=== PATIENT | female | born 1955 | race Caucasian/White ===

== ENCOUNTER 2016-10-05 13:00 | Outpatient (RCR) | payer BC ==
--- NOTE | 2016-09-16 14:28 | PT/OT/ST INITIAL EVALUATION ---
Department of Health and Human Services Form Approved Health Care Financing Administration OMB No. [id number] PLAN OF CARE/ASSESSMENT FOR OUTPATIENT REHABILITATION (Complete for Initial Claims Only) 1. PATIENT'S NAME Arabella Crocker 2. ACC # [id number] 3. HICN NA 4. PROVIDER NO. [id number] 5. TYPE: PT 6. PRIOR HOSPITALIZATION NA 7. PRIMARY DX Right shoulder and neck pain 8. SECONDARY DX NA 9. ONSET DATE Several years ago 10. REFERRAL DATE 09/07/2016 11. SOC. DATE 09/08/2016 12. TIME OF EVAL 11:[address] Herminia Cat 13. CHARGES/UNITS Evaluation 93483 Iontophoresis Manual therapy 66648, 1 unit Therapeutic exercise 79692, 1 unit 14. G CODES NA 15. PRIOR LEVEL OF FUNCTION; PERTINENT HISTORY (Prior therapy results, reason for referral.) S: Prior to today's evaluation the patient did consent to today's evaluation and treatment. The patient is a 61-year-old female who reports an initial onset of neck and right shoulder pain several years ago. The patient has noted a recent increase in shoulder and cervical spine pain that began to worsen in April. She was having to assist her father with transfers, and now is currently having to help with cleaning out her father's home which involves lifting and carrying boxes. Primary Complaint: The patient's primary complaint is her arms going to sleep when they are overhead, as well as shoulder pain that is present with most upper extremity movements. She also has a significant feeling of tightness in the neck and upper thoracic regions. Prior level of function: The patient is recently retired and does enjoy going to the [employer], camping and boating. She also has been working on remodeling. The patient is also very supportive of her father and was having to assist him with transfers within the last 6 months with a decline in his medical status. Current level of function: The patient reports she is still able to complete all daily tasks, however, is experiencing increased pain. She does note difficulty with reaching back behind her back secondary to pain with her right shoulder. Therapy History: The patient has not had any recent therapy for this issue. Pain rating: Current pain level is 3/10 with pain greater than 3/10 with upper extremity movements. The pain is described as constant with some days being more painful than others. She also has a sharp pain that is present in the right shoulder. Neck stiffness is the primary complaint with muscle tightness. Aggravating factors: The pain is exacerbated by upper endoscopy movements. Relieving factors: It is relieved by massage and using heat. Diagnostic testing: No diagnostic tests have been utilized at this time. Past medical history: Includes celiac disease and arthritis, appendectomy, blepharoplasty and hiatal hernia repair. Current medications: The patient currently takes Omeprazole and Levocetirizine, as well as ibuprofen, and Aleve. Activity level: Reported as low. Personal health rating: Reported as good. Patient's Goal: The patient's goal is to be able to have less pain and loosen the muscles of her upper back and neck. 16. INITIAL ASSESSMENT/SAFETY PRECAUTIONS/MEDICAL COMPLICATIONS (Level of function at start of care. Be specific, use objective measures, list problems.) O: APPEARANCE AND OBSERVATION: The patient has mild forward head positioning. The patient also has mild elevated right 1st rib with palpation. PALPATION: The patient has tightness and tenderness to palpation of the bilateral upper trapezii, greatest on the right, as well as tightness in the parascapular muscles and the right sternocleidomastoid. SPECIAL TESTS: Positive Yergason test on the right for bicipital tendonitis. Negative Neer's impingement and sulcus sign for any instability or impingement bilaterally. Negative Spurling test for recreation of pain in the cervical spine region, as well as negative cervical distraction test for relief of symptoms. MOBILITY: The patient has mild hypomobility throughout the lower cervical spine region. RANGE OF MOTION/FLEXIBILITY: Right cervical rotation 60 degrees and painful. Left 54 degrees and painful. Bilateral cervical side bending limited by 50%. Cervical flexion and extension are not limited. The patient has full shoulder flexion bilaterally, but it is painful on the right shoulder. Internal rotation on the right was T12, on the left T6. External rotation right T4, left T6. STRENGTH: Bilateral shoulder flexion and abduction strength 5/5. Shoulder internal rotation strength 5/5 bilaterally. External rotation strength 4/5. Elbow flexion and extension 5/5. TODAY'S TREATMENT: Today's treatment consisted of educating the patient on the findings of the evaluation and recommended treatment plan. The physical therapist did utilize occipital relief, which the patient did note a loosening of her muscles; however, she did have a feeling of numbness in both of her hands after lying supine for approximately 15 minutes. Upon sitting from supine, the patient did report lightheadedness and a feeling of wooziness that did take greater than 2 minutes to resolve. The patient does report that this is not a new sensation, however, wasn't able to recall what specifically brings it on outside of therapy. The physical therapist did provide a written home exercise program consisting of cervical spine range of motion activities and scapula mobility exercises. 17. INITIAL POC: (Specify procedures, modalities, short and terminal clerk goals) A: The patient presents to physical therapy with a longstanding history of neck and right shoulder pain with a recent exacerbation starting in April 2016. The patient has impaired cervical spine range of motion, significant muscle tightness throughout the cervical spine and parascapular region greatest on the right and mild strength impairments in the right shoulder. PROGNOSIS: The patient does have a good outcome due to her active prior level of function and motivation to have decreased pain and improved mobility. INFORMED CONSENT: The diagnosis, prognosis, treatment plan, risks and expected outcomes were discussed with this patient and is agreeable to today's established plan of care. SHORT TERM GOALS X2 WEEKS: 1. The patient will report a 50% decrease in pain frequency in order to complete daily tasks with less discomfort. 2. The patient will improve left cervical rotation to be a minimum of 60 degrees and cervical side bending to be a minimum of 30 degrees to demonstrate improved functional cervical range of motion. 3. The patient will demonstrate proper scapular stabilization throughout a full treatment with less than 3 verbal cues to improve support for her shoulders. PLASTER TENDER GOALS X4 WEEKS: 1. The patient will demonstrate shoulder internal rotation to be at the T8 level with no pain reported with this movement. 2. The patient will demonstrate the ability to improve bilateral shoulder external rotation strength to be 5/5 with proper scapular stabilization. 3. The patient will report no numbness or tingling in her upper extremities in a 1 week time period. 4. The patient will demonstrate the ability to maintain scapular stabilization with lifting up to 10 pounds form waist to chest height to improve her functional use of upper extremities. P: Plan to treat this patient 3 times a week for 4 weeks in order to address neck and shoulder pain, decreased cervical spine range of motion, and impaired shoulder strength. Treatment will include modalities as needed to address pain and muscle tightness. Manual therapy will be utilized to improve mobility and flexibility throughout the neck and shoulder regions, therapeutic exercise will emphasize on improving range of motion, scapular stabilization, and upper extremity strength. Neuromuscular reeducation will be utilized as needed. The patient was provided a home exercise program and this will be progressed as needed. Thank you for the referral of this patient. 18. FREQUENCY 3 times a week 19. DURATION 4 weeks 20. FUNCTIONAL LEVEL (End of claim period) 21. PHYSICIAN SIGNATURE ? ON FILE OR ENTER HERE: 22. DATE: I certify the need for these services furnished under this plan of care and if for partial hospitalization. 23. CERTIFICATION FROM THROUGH FORM [id number]
[~2016-10-05 13:00] MED LIST: CLON0.5T3 PO; LORA10TA76 PO; MULT-351 PO; OMEP20TA PO; OMG1KC PO
== END 2016-10-25 12:00 | disposition home or self-care (01) ==
LOC: PT 13:00
PROVIDERS: ATTEND Family Medicine
DX: M25.511 Pain in right shoulder (principal); M54.2 Cervicalgia
CPT/HCPCS: 97016; 97110; 97140; 97161; G0283; 97014